=== PATIENT | male | born 1960 | race American Indian/Alaskan Native ===

== ENCOUNTER 2020-06-20 12:33 | Outpatient (CLI) | payer OTHER ==
[2020-06-20] MEDS ORDERED: ALBUTEROL 2.5 MG/3 ML NEBU IH ONE (13:21)
== END 2020-06-20 12:34 | disposition home or self-care (01) ==
LOC: PF 12:33
PROVIDERS: ATTEND Internal Medicine
DX: J44.9 Chronic obstructive pulmonary disease, unspecified (principal)
CPT/HCPCS: 94060; 94640; 94729; A9270